=== PATIENT | male | born 1970 | race Two or more races ===

== ENCOUNTER → 2025-01-31 | Emergency (ER) | payer OTHER ==
[~2025-01-31] VITALS: Ht 180.3 cm; Wt 79.4 kg
[~2025-01-31] MED LIST: 0.9 % SODIUM CHLORIDE 1,000 ML IV STA; CEFAZOLIN SODIUM 1,000 MG VIAL IV STA; CEFAZOLIN SODIUM 1,000 MG VIAL ONE; LACTOBACILLUS 5 DR/0.2 ML BLIST.PACK PO STA; VALSARTAN-HCTZ1 EACH PO
[2025-01-31 20:04] LABS: ALBUMIN 3.3 gm/dL (3.4-5.0); BILIRUBIN TOTAL 0.5 mg/dL (0.3-1.2); CALCIUM 8.6 mg/dL (8.5-10.1); CREATININE SERUM 1.21 mg/dL (0.70-1.30); GFR 62.26; GLOBULINA 3.3 G/DL (2.4-3.5); POTASSIUM 3.98 mEq/L (3.5-5.1); TOTAL PROTEIN 6.6 gm/dL (6.4-8.2)
[2025-01-31 20:59] LABS: HEMATOCRIT 40.9 % (39.0-48.0); HEMOGLOBIN 14.2 g/dL (13-16.00); MEAN CELL VOLUME 82.6 fL (80.0-100.00); MEAN CORPUSCULAR HEMOGLOBIN 28.8 pg (27.00-32.0); MEAN CORPUSCULAR HGB CONC 34.9 g/dl (32.0-36.0); PLATELET COUNT 272 K/uL (150-450); RED BLOOD COUNT 4.95 M/uL (4.00-6.00); RED CELL DISTRIBUTION WIDTH 13.8 % (11.5-14.5)
== END | disposition home or self-care (01) ==
LOC: ER 14:49
DX: K52.9 Noninfective gastroenteritis and colitis, unspecified (principal); R10.9 Unspecified abdominal pain